=== PATIENT | female | born 1980 | race Caucasian/White ===

== ENCOUNTER 2019-02-01 13:35 | Emergency (ER) | payer MEDICAID ==
[~2019-02-01] VITALS: Ht 170.2 cm; Wt 92.1 kg
--- NOTE | 2019-02-01 13:47 | NUR ---
PT BIBRA AND LAP, C/O HEARING VOICES, RUNNING THRU TRAFFIC, +ETOH,-SI, PT IS AAOX3, NOT IN RESPIRATORY DISTRESS, V/S STABLE, KEPT RESTED AND COMFORTABLE, WILL CONTINUE TO MONITOR.
--- NOTE | 2019-02-01 14:07 | NUR ---
SEEN AND EXAMINED BY PATRICK FORBES
[2019-02-01 14:26] LABS: BASOPHILS # (AUTO) 0.1 /CMM (0.0-0.2); EOSINOPHILS % (AUTO) 3.3 % (0.0-6.0); HEMATOCRIT 35 % (33-45); HEMOGLOBIN 11.1 g/dL (11.5-14.8); LYMPHOCYTES # (AUTO) 1.7 /CMM (0.8-4.8); LYMPHOCYTES % (AUTO) 30.8 % (20.0-44.0); MEAN CORPUSCULAR HGB CONC 31 g/dl (31.0-36.0); MEAN CORPUSCULAR VOLUME 78 fL (82-100); MONOCYTES # (AUTO) 0.3 /CMM (0.1-1.30); MONOCYTES % (AUTO) 5.2 % (2.0-12.0); NEUTROPHILS # (AUTO) 3.3 /CMM (1.8-8.9); NEUTROPHILS % (AUTO) 59.7 % (43.0-81.0); PLATELET COUNT (AUTO) 332 /CMM (150-450); RED BLOOD CELL COUNT(AUTO) 4.57 MIL/uL (4.0-5.2); WHITE BLOOD COUNT (AUTO) 5.5 K/uL (4.3-11.0)
[2019-02-01 14:45] LABS: ALBUMIN 3.6 g/dL (3.4-5.0); BILIRUBIN,TOTAL 0.2 mg/dL (0.2-1.0); CALCIUM, SERUM 8.7 mg/dL (8.5-10.1); CREATININE 0.6 mg/dL (0.6-1.3); TOTAL PROTEIN, SERUM 7.9 g/dL (6.4-8.2)
--- NOTE | 2019-02-01 14:53 | NUR ---
URINE SPECIMEN COLLECTED AND SENT TO LAB.
[2019-02-01 14:59] LABS: BILIRUBIN,URINE Negative (NEGATIVE); BLOOD, URINE Negative Ery/uL (NEGATIVE); COLOR,URINE Yellow (YELLOW); KETONES,URINE Negative (NEGATIVE); LEUKOCYTE ESTERASE ,URINE Small (NEGATIVE); NITRITE, URINE Negative (NEGATIVE); PROTEIN,URINE Negative (NEGATIVE); UGLUCOSE Negative (NEGATIVE)
[2019-02-01 15:02] LABS: APPEARANCE,URINE Slightly Cloudy (CLEAR)
[2019-02-01 15:06] LABS: BILIRUBIN,DIRECT 0.1 mg/dL (0.0-0.2); POTASSIUM 3.2 mmol/L (3.5-5.1)
[2019-02-01 15:07] LABS: SALICYLATE 2.6 mg/dL (2.8-20.0)
[2019-02-01 15:22] LABS: BACTERIA,URINE None seen /HPF (None Seen); SQUAMOUS EPITHELIAL CELL,UR Few /HPF (None Seen)
[2019-02-01] MEDS ORDERED: OLANZAPINE 5 MG TABLET ONE (15:24)
[2019-02-01] MEDS ORDERED: OLANZAPINE 5 MG TABLET PO ONE (15:30)
[2019-02-01] MEDS ORDERED: IV NS 0.9% 1,000 ML BAG IV ONE (15:30)
--- NOTE | 2019-02-01 17:45 | NUR ---
[facility]-[employer] ETA 1HR.
--- NOTE | 2019-02-02 06:17 | NUR ---
IV removed. Catheter intact and site benign. Pressure and 4x4 applied to site. No bleeding noted.
--- NOTE | 2019-02-02 06:54 | NUR ---
PT REQUESTING TO BE DISCHARGED HOME. PT OK TO BE DISCHARGED PER DR SINGH. Patient discharged to home in stable condition. Written and verbal after care instructions given. Patient verbalizes understanding of instruction.Patient is awake and alert to self, day, and place.pT ambulatory with a steady gait. TAP card provided per request.
[2019-02-02 06:55] VITALS: BP 125/79
== END 2019-02-02 07:04 | disposition home or self-care (01) ==
LOC: ER 13:37
DX: F10.229 Alcohol dependence with intoxication, unspecified (principal); E11.9 Type 2 diabetes mellitus without complications; F15.10 Other stimulant abuse, uncomplicated; Y90.4 Blood alcohol level of 80-99 mg/100 ml; Z88.8 Allergy status to other drugs, medicaments and biological substances
CPT/HCPCS: 36415; 80048; 80076; 80305; 80307 ×2; 80329; 81001; 84703; 85025; 99283; G0480; J7030; 81000-TC